=== PATIENT | male | born 1980 | race Caucasian/White ===

== ENCOUNTER 2017-02-09 20:48 | Observation (INO) | payer OTHER ==
[~2017-02-09] VITALS: Ht 172.7 cm; Wt 86.4 kg
--- NOTE | 2017-02-09 23:04 | DIAGNOSTIC IMAGING REPORT ---
PROCEDURE: CT ABD/PELVIS WITH CONTRAST CLINICAL INDICATION: ABDOMINAL PAIN TECHNIQUE: 125 ml of Isovue 300 were injected intravenously and axial images were obtained of the entire abdomen and pelvis with sagittal and coronal reformations. COMPARISON: CT abdomen/pelvis 07/02/2014. FINDINGS: ABDOMEN: 2 mm right middle lobe nodule. Mild bibasilar dependent atelectasis. Heart size is normal. Moderate fluid distention of the stomach. Moderate distention of the mid small bowel with transition point in the right pelvis with mild fluid distention of the terminal ileum. There is also of fluid in the ascending and transverse colon. Enlarged liver (20.3 cm). The gallbladder, pancreas, spleen, adrenal glands and right kidney are normal. Stable small left renal cyst. Mild atherosclerosis of the abdominal aorta. Minor degenerative changes. PELVIS: Normal appendix. Mild sigmoid diverticulosis. Trace free fluid. No pelvic mass or inflammatory changes. Prostate bladder are unremarkable. Bones are unremarkable. IMPRESSION: 1. Marked gastric distention and distention of mid small bowel with fluid in the ascending and transverse colon. Findings suggest a gastroenterocolitis while partial small bowel obstruction with transition point in the pelvis is less likely. Recommend NG tube placement. 2. Hepatomegaly 3. Mild sigmoid diverticulosis 4. Results discussed with Dr. Grover All CT scans at this facility use dose modulation, iterative reconstruction, and/or weight-based dosing when appropriate to reduce radiation dose to as low as reasonably achievable.
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
--- NOTE | 2017-02-09 23:06 | ED ORDER SUMMARY ---
..... Patient: DAVID NOVA [facility] VisitID: [id number] [address] [place] [address] 36y, M Registration Date/Time: 02/09/2017 ORDER SHEET Weight: 99.7 kg (stated) Allergies: Sulfa Antibiotics GENERAL ORDERS: CBC w Diff Urgent (21:02/09/2017 Alma HEWITT) (21:03 KKnebel R.N.) (Ack 21:03 LMuller) CMP Urgent (21:02/09/2017 Alma HEWITT) (21:03 KKnebel R.N.) (Ack 21:03 LMuller) UA-Culture if indicated Urgent (21:02/09/2017 Alma HEWITT) (Ack 21:03 LMuller) (22:22 KKnebel R.N.) Amylase Urgent (21:02/09/2017 Alma HEWITT) (21:03 KKnebel R.N.) (Ack 21:03 LMuller) Lipase Urgent (21:02/09/2017 Alma HEWITT) (21:03 KKnebel R.N.) (Ack 21:03 LMuller) Urine Drug Screen Urgent (21:02/09/2017 Alma HEWITT) (Ack 21:03 LMuller) (22:22 KKnebel R.N.) Blood Culture (No) (N/A) Urgent (22:10 02/09/2017 Alma HEWITT) (Ack 22:12 AMcQuoid ER Tech1) (22:35 KKnebel R.N.) CT Abd/Pel w Cont (No) (see report) Urgent (22:10 02/09/2017 Alma HEWITT) (Ack 22:12 AMcQuoid ER Tech1) (22:35 KKnebel R.N.) Lactate, Serum Urgent (22:11 02/09/2017 Alma HEWITT) (Ack 22:12 AMcQuoid ER Tech1) (22:35 KKnebel R.N.) NG Tube (23:09 02/09/2017 Alma HEWITT) (Ack 23:14 AMcQuoid ER Tech1) MEDICATION ORDERS: IV FLUIDS: IV NS : initial bolus 500 mL (1000 mL/hr), then 125 mL/hr for 4h (NOW); Urgent (21:01 02/09/2017 Alma HEWITT) (21:07 Carmelo Lundberg) Zofran IV 4 mg (NOW) (21:02 02/09/2017 Alma HEWITT) (21:08 Carmelo Lindsey.N.) Dilaudid IV 1 mg (HIGH ALERT MEDICATION, NOW) (22:09 02/09/2017 Alma HEWITT) (22:22 Carmelo Lindsey.NPaco) ORDER SHEET NOTES: [Electronically signed by Sheriff Tamika Naylor (01:02/10/2017)] [Electronically signed by Raymon Grover MD (01:18 02/10/2017)] [Electronically locked/signed by Sheriff Tamika Naylor (:02/10/2017)]
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
--- NOTE | 2017-02-09 23:06 | ED ORDER SUMMARY ---
..... Patient: DAVID NOVA OrderSheet [facility] VisitID: [id number] [address] [place] [address] 36y, M Registration Date/Time: 02/09/2017 ORDER SHEET Weight: 99.7 kg (stated) Allergies: Sulfa Antibiotics GENERAL ORDERS: CBC w Diff Urgent (21:02/09/2017 Alma HEWITT) (21:03 KKnebel R.N.) (Ack 21:03 LMuller) CMP Urgent (21:02/09/2017 Alma HEWITT) (21:03 KKnebel R.N.) (Ack 21:03 LMuller) UA-Culture if indicated Urgent (21:02/09/2017 Alma HEWITT) (Ack 21:03 LMuller) (22:22 KKnebel R.N.) Amylase Urgent (21:02/09/2017 Alma HEWITT) (21:03 KKnebel R.N.) (Ack 21:03 LMuller) Lipase Urgent (21:02/09/2017 Alma HEWITT) (21:03 KKnebel R.N.) (Ack 21:03 LMuller) Urine Drug Screen Urgent (21:02/09/2017 Alma HEWITT) (Ack 21:03 LMuller) (22:22 KKnebel R.N.) Blood Culture (No) (N/A) Urgent (22:10 02/09/2017 Alma HEWITT) (Ack 22:12 AMcQuoid ER Tech1) (22:35 KKnebel R.N.) CT Abd/Pel w Cont (No) (see report) Urgent (22:10 02/09/2017 Alma HEWITT) (Ack 22:12 AMcQuoid ER Tech1) (22:35 KKnebel R.N.) Lactate, Serum Urgent (22:11 02/09/2017 Alma HEWITT) (Ack 22:12 AMcQuoid ER Tech1) (22:35 KKnebel R.N.) NG Tube (23:09 02/09/2017 Alma HEWITT) (Ack 23:14 AMcQuoid ER Tech1) MEDICATION ORDERS: IV FLUIDS: IV NS : initial bolus 500 mL (1000 mL/hr), then 125 mL/hr for 4h (NOW); Urgent (21:01 02/09/2017 Alma HEWITT) (21:07 Carmelo Lundberg) Zofran IV 4 mg (NOW) (21:02 02/09/2017 Alma HEWITT) (21:08 Carmelo Lindsey.N.) Dilaudid IV 1 mg (HIGH ALERT MEDICATION, NOW) (22:09 02/09/2017 Alma HEWITT) (22:22 Carmelo Lindsey.NPaco) ORDER SHEET NOTES: [Electronically signed by Sheriff Tamika Naylor (01:02/10/2017)] [Electronically signed by Raymon Grover MD (01:18 02/10/2017)] [Electronically locked/signed by Sheriff Tamika Naylor (:02/10/2017)]
[2017-02-10 01:00] VITALS: BP 118/68; BP 126/88
--- NOTE | 2017-02-10 01:06 | History & Physical Report ---
Information Source Information Source: Self Reliability: Fair History Chief Complaint Abdominal pain nausea vomiting History of Present Illness Patient is a 36-year-old male with a past medical history of asthma, depression, gastric ulcers and substance abuse that is presenting with a one-day history of abdominal pain and nausea vomiting. Patient had been in his usual state of health when he noticed that he was having abdominal distention, with bouts of abdominal pain. Patient described the pain as crampy/colicky in nature and that it would appear every 20-30 minutes without fail. There were no alleviating or exacerbating factors. Patient attempted to take [id number] analgesics with no good relief. Patient then started to develop bouts of nausea with accompanying vomiting. Patient's vomiting was nonbloody nonbilious and occurred sporadically with no precipitating factors. Patient continued to have these symptoms to the point where it bothered him to the degree that he thought he would need to come to Hospital. Patient has no other complaints at the moment. Patient does claim that his girlfriend has been sick recently with gastrointestinal symptoms and this may be a reason why he is still currently. Patient has no other evidence of sick contacts or change in diet. Nor has he eaten at any other unusual places or deviated from his normal routine. Patient History 1. Small bowel obstruction 2. Colitis 3. Substance abuse Social History Patient lives in his own house with his girlfriend. Patient smokes half a pack a day every single day for the past 20 years. Patient admits to drinking occasionally. Patient also admits to using methamphetamines 3 days ago. Patient manages all his ADLs independently. Family History Family history was reviewed; no changes noted. Medications and Allergies Medications Home medications Albuterol inhaler as needed Current Medications Sig/Cali Start time Last Medication Dose Route Stop Time Status Admin Pantoprazole Sodium 40 MG DAILY@0600 02/10 0600 AC IV Acetaminophen 650 MG Q6H PRN 02/10 15 AC PO Morphine Sulfate 1 MG Q4H PRN 02/10 15 AC IV Ondansetron HCl 4 MG Q6H PRN 02/105 AC IV Sodium Chloride 1,000 ML ASDIRECTED 02/10 15 AC IV Metronidazole/Sodium 100 ML Q12HR 02/10 6 AC Chloride IV Allergies Coded Allergies: Sulfa Antibiotics (02/10/17) Review of Systems Constitutional Weakness, Malaise. Denies: Fever, Chills, Sweats, Other. Eyes Denies: Pain, Vision Change, Conjunctival Inflammation, Eyelid Inflammation, Redness, Other. ENT Denies: Ear Pain, Ear Discharge, Nose Pain, Nasal Discharge, Nasal Congestion, Mouth Pain, Mouth Swelling, Throat Pain, Throat Swelling, Other. Respiratory Denies: Cough, Dry, SOB w/exertion, Wheezing, Hemoptysis, Pleuritic Pain, Sputum , Other. Cardiovascular Denies: Chest Pain, Palpitations, Orthopnea, PND, Edema, Light-headedness, Other. Gastrointestinal Nausea, Vomiting, Abdominal Pain. Denies: Diarrhea, Constipation, Melena, Hematochezia, Other. Genitourinary Denies: Dysuria, Frequency, Incontinence, Hematuria, Retention, Other. Musculoskeletal Denies: Neck Pain, Shoulder Pain, Arm Pain, Back Pain, Hand Pain, Leg Pain, Foot Pain, Other. Skin Denies: Rash, Lesions, Jaundice, Bruising, Other. Neurological Denies: Weakness, Numbness, Incoordination, Change in speech, Confusion, Seizures, Other. Physical Exam General Appearance Alert, Oriented X3, No acute distress HEENT PERRLA, EOMI, Moist mucous membranes Lungs Clear to auscultation Neck No JVD, No masses, No thyromegaly Cardiovascular Regular rate and rhythm, No murmurs, gallops, rubs Abdomen Soft, No tenderness Extremities No edema, Normal pulses, No tenderness Skin No Breakdown Neurological Normal speech, Sensation intact, Cranial nerves intact Psych/Mental Status Mood normal LAB Results Laboratory Tests 02/09 Chemistry Plasma Sodium (136 - 145 mmol/L) 139 Plasma Potassium (3.5 - 5.1 mmol/L) 4.1 Plasma Chloride (98 - 107 mmol/L) 103 CO2 (Enzymatic) (21 - 32 mmol/L) 32 BUN (7 - 18 mg/dL) 15 Creatinine (0.6 - 1.3 mg/dL) 0.7 Est GFR ( Amer) (mL/min) >60 Est GFR (Non-Af Amer) (mL/min) >60 Glucose (70 - 110 mg/dL) 107 Lactic Acid (0.4 - 2.0 mmol/L) 1.5 Plasma Calcium (8.5 - 10.1 mg/dL) 9.6 Total Bilirubin (0.0 - 1.0 mg/dL) 0.5 AST (15 - 37 U/L) 24 ALT (12 - 78 U/L) 53 Alkaline Phosphatase (46 - 116 U/L) 87 Total Protein (6.4 - 8.2 g/dL) 8.9 Albumin (3.3 - 5.0 g/dL) 4.5 Amylase (25 - 115 U/L) 53 Lipase (73 - 393 U/L) 114 Hematology WBC (4.5 - 11.5 K/uL) 12.5 RBC (4.50 - 5.90 M/uL) 5.72 Hgb (13.5 - 17.5 gm/dL) 17.4 Hct (41.0 - 53.0 %) 51.9 MCV (80 - 100 fL) 91 MCH (26 - 34 pg) 30 RDW (11.6 - 14.8 %) 12.5 Neut % (Auto) (50 - 75 %) 82.1 Lymph % (Auto) (25 - 40 %) 10.7 [place] % (Auto) (3 - 14 %) 5.6 Eos % (Auto) (0 - 4 %) 1.3 Baso % (Auto) (0 - 2 %) 0.3 Plt Count, EDTA (150 - 400 K/uL) 299 PUBS MCHC (31 - 37 g/dL) 34 Toxicology Urine Opiates Screen (NEGATIVE) NEGATIVE Urine Methadone Screen (NEGATIVE) NEGATIVE Ur Barbiturates Screen (NEGATIVE) NEGATIVE U Amphetamin/Meth Scrn (NEGATIVE) POSITIVE MDMA (Ecstasy) Screen (NEGATIVE) POSITIVE U Benzodiazepines Scrn (NEGATIVE) NEGATIVE Urine Cocaine Screen (NEGATIVE) NEGATIVE U Cannabinoids Screen (NEGATIVE) NEGATIVE Urines Urine Color JEFE Urine Appearance CLEAR Urine pH (5.0 - 8.0) 6.5 Ur Specific [place] (1.010 - 1.030) 1.025 Urine Protein (NEGATIVE) 1+ Urine Ketones (NEGATIVE) NEGATIVE Urine Blood (NEGATIVE) NEGATIVE Urine Nitrite (NEGATIVE) POSITIVE Urine Bilirubin (NEGATIVE) NEGATIVE Urine Urobilinogen (0.2 - 1.0 EU/dL) 1.0 Ur Leukocyte Esterase (NEGATIVE) NEGATIVE Urine RBC (0 - 1 rbc/hpf) NONE SEEN Urine WBC (0 - 1 wbc/hpf) 3-5 Ur Epithelial Cells (0 - 5 EPI/hpf) 0-1 Urine Bacteria (NONE SEEN) FEW (1+) Urine Glucose (NEGATIVE) NEGATIVE Urine Comment CULTURE INDICATED Microbiology Date/Time Procedure - Status Source Growth 02/10 2244 Blood Culture - RECD BLOOD 02/09 2223 Blood Culture - RECD BLOOD 02/09 2018 Urine Culture - RECD URINE CC Assessment and Plan Problem List 1. Small bowel obstruction Plan Patient has evidence small bowel obstruction on CT scan No clear transition point however evidence of collapse bowel after area of distended bowel Most likely due to colitis like disease process We'll have an NG tube placed and and keep on intermittent suction 2. Colitis Plan Unknown etiology behind colitis Most likely due to sick contacts We'll keep the patient nothing by mouth for the time. We'll treat the patient with Flagyl IV We'll keep the NG tube in and wait for return of bowel function We'll monitor input and output IV fluid normal saline 100 mL per hour 3. Substance abuse Plan Patient admits to cigarette smoking and methamphetamine use Patient was told that these above unfavorable habits that he should look to quit as soon as possible Patient is amenable to the decision Will limit the amount of narcotics the patient receives
--- NOTE | 2017-02-10 01:18 | ED MAR SUMMARY ---
..... Medication Administration Record [facility] [address] [place] [address] Patient: DAVID NOVA Visit ID: [id number] 36y, M Weight: 99.7 kg Height/Length: 68 in BMI: 33.4 ALLERGIES: Sulfa Antibiotics Start 21:02/09/2017 Jodi Weeks R.N. Medication Administered: IV NS (SALINE), Dose: IV Fluids, Bolus: 1000 mL over 1 hour(s), Dispensed: 1000 mL bag, Site: #1 right AC. Medication Ordered: IV NS : initial bolus 500 mL (1000 mL/hr), then 125 mL/hr for 4h (NOW); Urgent. Given :02/09/2017 Jodi Weeks R.N. Medication Administered: ZOFRAN [IVP] (ONDANSETRON HCL), Dose: 4 mg IVP over 2 minute(s), Site: #1 right AC. Medication Ordered: Zofran IV 4 mg (NOW). Given :02/09/2017 Jodi Weeks R.N. Medication Administered: DILAUDID [IVP] (HYDROMORPHONE HCL PF), Dose: 1 mg IVP over 2 minute(s), Site: #1 right AC. Medication Ordered: Dilaudid IV 1 mg (HIGH ALERT MEDICATION, NOW).
--- NOTE | 2017-02-10 01:18 | ED MAR SUMMARY ---
..... Medication Administration Record [facility] [address] [place] [address] Patient: DAVID NOVA Visit ID: [id number] 36y, M Weight: 99.7 kg Height/Length: 68 in BMI: 33.4 ALLERGIES: Sulfa Antibiotics Start 21:02/09/2017 Jodi Weeks R.N. Medication Administered: IV NS (SALINE), Dose: IV Fluids, Bolus: 1000 mL over 1 hour(s), Dispensed: 1000 mL bag, Site: #1 right AC. Medication Ordered: IV NS : initial bolus 500 mL (1000 mL/hr), then 125 mL/hr for 4h (NOW); Urgent. Given :02/09/2017 Jodi Weeks R.N. Medication Administered: ZOFRAN [IVP] (ONDANSETRON HCL), Dose: 4 mg IVP over 2 minute(s), Site: #1 right AC. Medication Ordered: Zofran IV 4 mg (NOW). Given :02/09/2017 Jodi Weeks R.N. Medication Administered: DILAUDID [IVP] (HYDROMORPHONE HCL PF), Dose: 1 mg IVP over 2 minute(s), Site: #1 right AC. Medication Ordered: Dilaudid IV 1 mg (HIGH ALERT MEDICATION, NOW).
--- NOTE | 2017-02-10 01:18 | ED MED RECONCILIATION SUMMARY ---
Patient: DAVID NOVA Medication Reconciliation Report [facility] VisitID: [id number] [address] [place] [address] 36y, M Registration Date/Time: 02/09/2017 Weight: 99.7 kg Height/Length: 68 in. BMI: 33.4 ALLERGIES: Sulfa Antibiotics The patient's Home Medications are listed below: NONE. The source(s) of the original Home Medication information: Not obtained. The following Medications were given to the patient in the Emergency Department: IV NS IV Fluids bolus 1000 mL over 1 hour(s), administered: 02/09/2017 9:07:00 PM Zofran [IVP] IVP 4 mg, administered: 02/09/2017 9:08:00 PM Dilaudid [IVP] IVP 1 mg, administered: 02/09/2017 10:22:00 PM The following Medications were prescribed to the patient: None.
--- NOTE | 2017-02-10 01:18 | ED DISCHARGE INSTRUCTIONS ---
Patient: DAVID NOVA General Instructions [facility] VisitID: [id number] [address] [place] [address] 36y, M Registration Date/Time: 02/09/2017 Gastroenteritis. (Electronically signed by Raymon Grover MD 02/10/2017 1:18)
--- NOTE | 2017-02-10 01:18 | ED MED RECONCILIATION SUMMARY ---
Patient: DAVID NOVA Medication Reconciliation Report [facility] VisitID: [id number] [address] [place] [address] 36y, M Registration Date/Time: 02/09/2017 Weight: 99.7 kg Height/Length: 68 in. BMI: 33.4 ALLERGIES: Sulfa Antibiotics The patient's Home Medications are listed below: NONE. The source(s) of the original Home Medication information: Not obtained. The following Medications were given to the patient in the Emergency Department: IV NS IV Fluids bolus 1000 mL over 1 hour(s), administered: 02/09/2017 9:07:00 PM Zofran [IVP] IVP 4 mg, administered: 02/09/2017 9:08:00 PM Dilaudid [IVP] IVP 1 mg, administered: 02/09/2017 10:22:00 PM The following Medications were prescribed to the patient: None.
--- NOTE | 2017-02-10 01:18 | ED DISCHARGE INSTRUCTIONS ---
Patient: DAVID NOVA General Instructions [facility] VisitID: [id number] [address] [place] [address] 36y, M Registration Date/Time: 02/09/2017 Gastroenteritis. (Electronically signed by Raymon Grover MD 02/10/2017 1:18)
[2017-02-10 04:21] VITALS: BP 123/77
[2017-02-10 07:05] VITALS: BP 122/66
--- NOTE | 2017-02-10 08:23 | Progress Note ---
Subjective General Patient states passing gas and stool; is wanting d/c when able. will try clamp tube, then repeat xray, cetacaine for throat.
--- NOTE | 2017-02-10 08:23 | Progress Note ---
Subjective General Patient states passing gas and stool; is wanting d/c when able. will try clamp tube, then repeat xray, cetacaine for throat.
--- NOTE | 2017-02-10 10:53 | Progress Note ---
Physical Exam Vital Signs / I&Os Denies: SOB w/exertion. Cardiovascular Denies: Chest Pain, Palpitations. Gastrointestinal Vomiting, Abdominal Pain. Genitourinary Denies: Frequency. Musculoskeletal Denies: Shoulder Pain. Skin Denies: Rash. Neurological Denies: Numbness. Physical Exam Vital Signs / I&Os Vital Signs Date Time Temp Pulse Resp B/P Pulse O2 O2 Flow FiO2 Ox Delivery Rate 02/10 0705 80 17 122/66 94 Room Air 02/10 0421 98.4 79 18 123/77 97 Room Air 02/10 0146 Room Air 02/10 0100 98.6 82 16 118/68 97 Room Air General Appearance Oriented X3, Cooperative HEENT EOMI, NGT in place Lungs Clear to auscultation Cardiovascular Regular rate and rhythm, Normal S1 and S2 Abdomen tenderness to palpation, distended no rebound, bowel sounds Extremities No edema, No tenderness, multiple tattoos. Skin multiple tattoos in the upper extremity. Neurological Cranial nerves intact, somnolent LAB Results Laboratory Tests 02/09 Chemistry Plasma Sodium (136 - 145 mmol/L) 139 Plasma Potassium (3.5 - 5.1 mmol/L) 4.1 Plasma Chloride (98 - 107 mmol/L) 103 CO2 (Enzymatic) (21 - 32 mmol/L) 32 BUN (7 - 18 mg/dL) 15 Creatinine (0.6 - 1.3 mg/dL) 0.7 Est GFR ( Amer) (mL/min) >60 Est GFR (Non-Af Amer) (mL/min) >60 Glucose (70 - 110 mg/dL) 107 Lactic Acid (0.4 - 2.0 mmol/L) 1.5 Plasma Calcium (8.5 - 10.1 mg/dL) 9.6 Total Bilirubin (0.0 - 1.0 mg/dL) 0.5 AST (15 - 37 U/L) 24 ALT (12 - 78 U/L) 53 Alkaline Phosphatase (46 - 116 U/L) 87 Total Protein (6.4 - 8.2 g/dL) 8.9 Albumin (3.3 - 5.0 g/dL) 4.5 Amylase (25 - 115 U/L) 53 Lipase (73 - 393 U/L) 114 Hematology WBC (4.5 - 11.5 K/uL) 12.5 RBC (4.50 - 5.90 M/uL) 5.72 Hgb (13.5 - 17.5 gm/dL) 17.4 Hct (41.0 - 53.0 %) 51.9 MCV (80 - 100 fL) 91 MCH (26 - 34 pg) 30 RDW (11.6 - 14.8 %) 12.5 Neut % (Auto) (50 - 75 %) 82.1 Lymph % (Auto) (25 - 40 %) 10.7 [place] % (Auto) (3 - 14 %) 5.6 Eos % (Auto) (0 - 4 %) 1.3 Baso % (Auto) (0 - 2 %) 0.3 Plt Count, EDTA (150 - 400 K/uL) 299 PUBS MCHC (31 - 37 g/dL) 34 Toxicology Urine Opiates Screen (NEGATIVE) NEGATIVE Urine Methadone Screen (NEGATIVE) NEGATIVE Ur Barbiturates Screen (NEGATIVE) NEGATIVE U Amphetamin/Meth Scrn (NEGATIVE) POSITIVE MDMA (Ecstasy) Screen (NEGATIVE) POSITIVE U Benzodiazepines Scrn (NEGATIVE) NEGATIVE Urine Cocaine Screen (NEGATIVE) NEGATIVE U Cannabinoids Screen (NEGATIVE) NEGATIVE Urines Urine Color JEFE Urine Appearance CLEAR Urine pH (5.0 - 8.0) 6.5 Ur Specific [place] (1.010 - 1.030) 1.025 Urine Protein (NEGATIVE) 1+ Urine Ketones (NEGATIVE) NEGATIVE Urine Blood (NEGATIVE) NEGATIVE Urine Nitrite (NEGATIVE) POSITIVE Urine Bilirubin (NEGATIVE) NEGATIVE Urine Urobilinogen (0.2 - 1.0 EU/dL) 1.0 Ur Leukocyte Esterase (NEGATIVE) NEGATIVE Urine RBC (0 - 1 rbc/hpf) NONE SEEN Urine WBC (0 - 1 wbc/hpf) 3-5 Ur Epithelial Cells (0 - 5 EPI/hpf) 0-1 Urine Bacteria (NONE SEEN) FEW (1+) Urine Glucose (NEGATIVE) NEGATIVE Urine Comment CULTURE INDICATED Microbiology Date/Time Procedure - Status Source Growth 02/10 0100 MRSA Screen - RECD NASAL 02/10 2244 Blood Culture - RECD BLOOD 02/09 2223 Blood Culture - RECD BLOOD 02/09 2018 Urine Culture - RECD URINE CC Assessment and Plan Problem List 1. Small bowel obstruction Plan Patient is on 2. Colitis 3. Substance abuse
[2017-02-10 10:54] VITALS: BP 110/65
--- NOTE | 2017-02-10 13:31 | DIAGNOSTIC IMAGING REPORT ---
PROCEDURE: XR ABDOMEN 1 VIEW UPRIGHT INDICATION: SBO TECHNIQUE: AP upright view. COMPARISON: CT abdomen/pelvis 02/09/2017. FINDINGS: Interval placement of NG tube with decompression of the stomach. Mild distention of the left upper quadrant small bowel with air-fluid levels. There also a nonspecific air-fluid levels in the large bowel. Bones are unremarkable. IMPRESSION: 1. NG tube in place with decompression of the stomach 2. Nonspecific air-fluid levels in the large and small bowel suggestive of enterocolitis versus resolving small bowel obstruction .
--- NOTE | 2017-02-10 15:04 | Progress Note ---
Subjective General Patient states he is doing much better. Lots of stooling. Has not been with any sig pain issues. Would like d/c home. Tolerating liq diet. NGT out and resolving SBO on xray Physical Exam Vital Signs / I&Os Vital Signs Date Time Temp Pulse Resp B/P Pulse O2 O2 Flow FiO2 Ox Delivery Rate 02/10 1054 98.2 81 19 110/65 97 Room Air 02/10 0705 80 17 122/66 94 Room Air 02/10 0421 98.4 79 18 123/77 97 Room Air 02/10 0146 Room Air 02/10 0100 98.6 82 16 118/68 97 Room Air General Appearance Alert HEENT Atraumatic Lungs coarse BS with good air movement Cardiovascular Regular rate and rhythm Abdomen Soft, pos BS with minimal abd tenderness Extremities No edema LAB Results Laboratory Tests 02/09 Chemistry Plasma Sodium (136 - 145 mmol/L) 139 Plasma Potassium (3.5 - 5.1 mmol/L) 4.1 Plasma Chloride (98 - 107 mmol/L) 103 CO2 (Enzymatic) (21 - 32 mmol/L) 32 BUN (7 - 18 mg/dL) 15 Creatinine (0.6 - 1.3 mg/dL) 0.7 Est GFR ( Amer) (mL/min) >60 Est GFR (Non-Af Amer) (mL/min) >60 Glucose (70 - 110 mg/dL) 107 Lactic Acid (0.4 - 2.0 mmol/L) 1.5 Plasma Calcium (8.5 - 10.1 mg/dL) 9.6 Total Bilirubin (0.0 - 1.0 mg/dL) 0.5 AST (15 - 37 U/L) 24 ALT (12 - 78 U/L) 53 Alkaline Phosphatase (46 - 116 U/L) 87 Total Protein (6.4 - 8.2 g/dL) 8.9 Albumin (3.3 - 5.0 g/dL) 4.5 Amylase (25 - 115 U/L) 53 Lipase (73 - 393 U/L) 114 Hematology WBC (4.5 - 11.5 K/uL) 12.5 RBC (4.50 - 5.90 M/uL) 5.72 Hgb (13.5 - 17.5 gm/dL) 17.4 Hct (41.0 - 53.0 %) 51.9 MCV (80 - 100 fL) 91 MCH (26 - 34 pg) 30 RDW (11.6 - 14.8 %) 12.5 Neut % (Auto) (50 - 75 %) 82.1 Lymph % (Auto) (25 - 40 %) 10.7 [place] % (Auto) (3 - 14 %) 5.6 Eos % (Auto) (0 - 4 %) 1.3 Baso % (Auto) (0 - 2 %) 0.3 Plt Count, EDTA (150 - 400 K/uL) 299 PUBS MCHC (31 - 37 g/dL) 34 Toxicology Urine Opiates Screen (NEGATIVE) NEGATIVE Urine Methadone Screen (NEGATIVE) NEGATIVE Ur Barbiturates Screen (NEGATIVE) NEGATIVE U Amphetamin/Meth Scrn (NEGATIVE) POSITIVE MDMA (Ecstasy) Screen (NEGATIVE) POSITIVE U Benzodiazepines Scrn (NEGATIVE) NEGATIVE Urine Cocaine Screen (NEGATIVE) NEGATIVE U Cannabinoids Screen (NEGATIVE) NEGATIVE Urines Urine Color JEFE Urine Appearance CLEAR Urine pH (5.0 - 8.0) 6.5 Ur Specific [place] (1.010 - 1.030) 1.025 Urine Protein (NEGATIVE) 1+ Urine Ketones (NEGATIVE) NEGATIVE Urine Blood (NEGATIVE) NEGATIVE Urine Nitrite (NEGATIVE) POSITIVE Urine Bilirubin (NEGATIVE) NEGATIVE Urine Urobilinogen (0.2 - 1.0 EU/dL) 1.0 Ur Leukocyte Esterase (NEGATIVE) NEGATIVE Urine RBC (0 - 1 rbc/hpf) NONE SEEN Urine WBC (0 - 1 wbc/hpf) 3-5 Ur Epithelial Cells (0 - 5 EPI/hpf) 0-1 Urine Bacteria (NONE SEEN) FEW (1+) Urine Glucose (NEGATIVE) NEGATIVE Urine Comment CULTURE INDICATED Microbiology Date/Time Procedure - Status Source Growth 02/10 0100 MRSA Screen - RECD NASAL 02/10 2244 Blood Culture - RECD BLOOD 02/09 2223 Blood Culture - RECD BLOOD 02/09 2018 Urine Culture - RECD URINE CC Assessment and Plan Problem List 1. Small bowel obstruction Plan Improved d/c home today at his request. 2. Colitis Plan Looks viral and hold on abx at this time discussed with radiology 3. Substance abuse Plan advised no tobacco/drugs.
--- NOTE | 2017-02-10 15:06 | Provider's Discharge Care Plan ---
Problem, Goal, Plan Problem List 1. Small bowel obstruction Instructions: Follow up as directed, Increase activity level, Stop smoking 2. Colitis Instructions: watch for fevers, increase in diarrhea 3. Substance abuse Instructions: Stop smoking, rec no drug/etoh
[2017-02-10 15:16] VITALS: BP 122/66
== END 2017-02-10 16:30 | disposition home or self-care (01) ==
LOC: ED SRH 20:48 → TRANS SRH 23:09 → CC SRH 23:09
PROVIDERS: ADMIT Internal Medicine
PROC: 0D9670Z Drainage of Stomach with Drainage Device, Via Natural or Artificial Opening (ICD-10-PCS; principal; 2017-02-09)
DX: K56.60 Unspecified intestinal obstruction (principal); K52.9 Noninfective gastroenteritis and colitis, unspecified; F15.10 Other stimulant abuse, uncomplicated; Z72.0 Tobacco use
CPT/HCPCS: 29253; 29259; 29262; 87094; 90004; 90065; 90074; 90100; 90148; 90469; 91672; 92031; 92132; 92235; 92530; 92760; 92761; 92762; 92763; 92764; 92765; 92766; 92767; 95059